=== PATIENT | male | born 1965 | race Caucasian/White ===

== ENCOUNTER 2021-03-15 11:15 | Emergency (ER) | payer OTHER, SELFPAY ==
[2021-03-15 11:34] VITALS: BP 113/89; PULSE 88; RESP 20; TEMP 36.5; O2SAT 99
--- NOTE | 2021-03-15 13:04 | ED.EAR ---
HPI - Ear Problem General Chief complaint: Ear Stated complaint: ear pain Time Seen by Provider: 03/15/21 13:05 Source: patient, RN notes reviewed and old records reviewed Mode of arrival: ambulatory Limitations: no limitations History of Present Illness HPI Narrative: 55 year old male who presents to [facility] care with complaints of right ear drainage or the past 2 days, denies any acute pain to his right ear. Patient states that he has had some nasal congestion with some drainage lately and he has been taking some Zyrtec for his symptoms. Patient denies any sore throat ,cough, or any known fevers, chills or sweats, denies any body aches. Patient has not been COVID vaccinated. MD Complaint: ear discharge Related Data Home Medications Medication Instructions Recorded Confirmed amlodipine 5 mg PO DAILY 03/15/21 03/15/21 lisinopril 20 mg PO DAILY 03/15/21 03/15/21 Allergies Allergy/AdvReac Type Severity Reaction Status Date / Time No Known Allergies Allergy Verified 03/15/21 11:48 Review of Systems Review of Systems: CONSTITUTIONAL: Denies fever, chills, or sweats. EYES: Denies visual changes, redness, or discharge. ENT: Positive for clear rhinorrhea, congestion,no sore throat, or otalgia positive for some right ear drainage CARDIOVASCULAR: Denies chest pain, palpitations, or edema. RESPIRATORY: Denies cough or dyspnea. GASTROINTESTINAL: Denies abdominal pain, nausea, vomiting, or diarrhea. GENITOURINARY: Denies dysuria or hematuria. SKIN: Denies rash or itching. MUSCULOSKELETAL: Denies back pain, joint pain, or myalgia. NEUROLOGIC: Denies headache, numbness, or weakness. PSYCHIATRIC: Denies anxiety or depression. [facility] Past Medical History Medical History (Updated 03/16/21 @ 00:00 by Sarah Ta) Hypertension Surgical History Surgical History (Updated 03/15/21 @ 13:15 by Roxann Grant NP) No history of previous surgery Family History Family History (Updated 03/20/21 @ 09:35 by Roxann Grant NP) Father Diabetes mellitus Social History Social History (Updated 03/20/21 @ 09:34 by Roxann Grant NP) Smoking status: Never smoker Alcohol intake: never Substance use: never Living arrangements: with family Gender identity (if verbalized by the patient): Male Comments At time of signature, agree with nursing past medical, surgical, social and family history. There is no relevant family history pertinent to the presenting complaint Exam Narrative: GENERAL: Well-appearing, well-nourished, and in no acute distress. HEAD: Normocephalic, atraumatic. EYES: PERRLA and EOMI. ENT: Nares with mild redness clear rhinorrhea no epistaxis. Mucous membranes moist.Right TM red with clear fluid drainage noted and bulging, Left TM normal with good light reflex,Throat mild redness with no lesions or exudates, no tonsil enlargement some post nasal drainage. NECK: Supple. no lymphadenopathy CHEST: Clear to auscultation. No respiratory distress.no cough noted, SAO2 99% on room air HEART: Regular rate and rhythm. No murmur heard. Normal peripheral pulses. ABDOMEN: Soft, nontender, nondistended, normal active bowel sounds. EXTREMITIES: Normal range of motion. No edema. SKIN: Warm, dry, no rash. NEURO: No focal deficits. Alert and oriented x3. Course Vital Signs Vital signs: Vital Signs Temperature 36.5 C 03/15/21 11:34 Pulse Rate 88 03/15/21 11:34 Respiratory Rate 20 03/15/21 11:34 Blood Pressure 113/89 03/15/21 11:34 Pulse Oximetry 99 03/15/21 11:34 Temperature 36.5 C 03/15/21 11:34 Pulse Rate 88 03/15/21 11:34 Respiratory Rate 20 03/15/21 11:34 Blood Pressure 113/89 03/15/21 11:34 Pulse Oximetry 99 03/15/21 11:34 Medical Decision Making Differential Diagnosis Differential Diagnosis: Right ear pain, otitis media, allergic rhinitis,sinusitis, viral syndrome Medical Records Medical records reviewed: Yes I reviewed the external patient's medical ceci
== END 2021-03-15 13:30 | disposition home or self-care (01) ==
PROVIDERS: Emergency Provider Registered Nurse; PCP Physician Assistant
DX: H66.91 Otitis media, unspecified, right ear (principal); J00 Acute nasopharyngitis [common cold]; I10 Essential (primary) hypertension
CPT/HCPCS: 99213; G0463